=== PATIENT | female | born 1945 | race Caucasian/White ===

== ENCOUNTER 2017-01-13 09:28 | Day surgery (SDC) | payer OTHER ==
--- NOTE | ~2017-01-13 | EGD ---
EGD REPORT [facility] [address] [place]. [address] NAME: MERCY CARDENAS : [birth year] STATUS : REG [facility] PAT#: [id number] AGE: 71 ADM/REG DATE : 01/13/17 MR#: [id number] REPORT SERV DATE: 01/13/17 DICTATED BY: CHAD DE LA O DATE: 01/14/17 REPORT STATUS : Draft [facility]ANS[facility]IBED BY: [facility] DATE: 01/14/17 [facility] Patient Name: Mercy Cardenas Date of : 1945 Attending MD: JOHN DE LA O MD Procedure Date No Time: 01/13/2017 Procedure: Colonoscopy Indications: High risk colon cancer surveillance: Personal history of colonic polyps, Last colonoscopy: October 2011 Referring MD: JUSTINO COBOS Medicines: See the Anesthesia note for documentation of the administered medications Complications: No immediate complications. Estimated blood loss: None. Procedure: Pre-Anesthesia Assessment: - ASA Grade Assessment: III - A patient with severe systemic disease. - Prior to the procedure, a History and Physical was performed, and patient medications and allergies were reviewed. The patient's tolerance of previous anesthesia was also reviewed. The risks and benefits of the procedure and the sedation options and risks were discussed with the patient. All questions were answered, and informed consent was obtained. Prior Anticoagulants: The patient has taken no previous anticoagulant or antiplatelet agents. After reviewing the risks and benefits, the patient was deemed in satisfactory condition to undergo the procedure. After I obtained informed consent, the scope was passed under direct vision. Throughout the procedure, the patient's blood pressure, pulse, and oxygen saturations were monitored continuously. The PCF [id number] was introduced through the anus and advanced to the terminal ileum. The ileocecal valve, appendiceal orifice, terminal ileum and rectum were photographed. The entire colon was examined. The colonoscopy was performed without difficulty. The patient tolerated the procedure well. The quality of the bowel preparation was adequate. Findings: The perianal and digital rectal examinations were normal. The terminal ileum appeared normal. Multiple small and large-mouthed diverticula were found in the entire colon. Normal mucosa was found in the entire colon. Biopsies were taken with a cold forceps for histology. EGD REPORT [place] [id number] [place]. [address] NAME: MERCY CARDENAS : [birth year] STATUS : REG [facility]#: [id number] AGE: 71 ADM/REG DATE : 01/13/17 MR#: [id number] REPORT SERV DATE: 01/13/17 DICTATED BY: CHAD DE LA O DATE: 01/14/17 REPORT STATUS : Draft TRANSCRIBED BY: [employer] DATE: 01/14/17 Non-bleeding internal hemorrhoids were found during retroflexion and were Grade I (internal hemorrhoids that do not prolapse). No other significant abnormalities were identified in a careful examination of the remainder of the colon. Impression: - The examined portion of the ileum was normal. - Diverticulosis in the entire examined colon. - Normal mucosa in the entire examined colon. Biopsied. - Non-bleeding internal hemorrhoids. Recommendation: - Patient has a contact number available for emergencies. The signs and symptoms of potential delayed complications were discussed with the patient. Return to normal activities tomorrow. Written discharge instructions were provided to the patient. - High fiber diet indefinitely. - Discharge patient to home. - Continue present medications. - Await pathology results. - Repeat colonoscopy in 5 years for surveillance. Procedure Code(s): --- Professional --- 32431, Colonoscopy, flexible, proximal to splenic flexure; with biopsy, single or multiple Diagnosis Code(s): --- Professional --- K64.0, First degree hemorrhoids K57.30, Diverticulosis of large intestine without perforation or abscess without bleeding Z86.010, Personal history of colonic polyps CPT copyright 2013 [employer]. All rights reserved. The codes documented in this report are preliminary and upon systems analysis manager review may be revised to meet current compliance requirements. JOHN DE LA O MD 01/13/2017 11:03 AM This report has been signed electronically. Number of Addenda: 0 Note Initiated On: 01/13/2017 10:36 AM Scope Withdrawal Time 0 hours 9 minutes 6 seconds
[~2017-01-13 09:28] MED LIST: ALLEGRA180 PO; AMARYL4 PO; CALTRA600D PO; COREG12 PO; COZAAR100 MG PO; CRESTOR40 MG PO; FISH OIL1200 MG PO; FLONASE NAS; GLUCPH PO; HARD NAILS PO; HUMALOG SC; JANUVIA100 MG PO; KLOR-CON 1010 MEQ PO; LIPITOR10 PO; MAGOX4 PO; MAXZIDE PO; PREV30 PO; PROTONIX PO; REG5 PO; STARLIX120 PO; TRESIBA FL100 UNIT/1 SC; VICTOZA18 MG/3 ML SC; VITAMIN D31000 UNIT PO; VITE PO
== END 2017-01-13 23:59 | disposition home or self-care (01) ==
LOC: DMU 09:28
PROVIDERS: Internal Medicine Gastroenterology
PROC: 0DBE8ZZ Excision of Large Intestine, Via Natural or Artificial Opening Endoscopic (ICD-10-PCS; principal; 2017-01-13 11:00)
DX: Z12.11 Encounter for screening for malignant neoplasm of colon (principal); K57.30 Diverticulosis of large intestine without perforation or abscess without bleeding; K64.8 Other hemorrhoids; Z86.010 Personal history of colon polyps; I12.9 Hypertensive chronic kidney disease with stage 1 through stage 4 chronic kidney disease, or unspecified chronic kidney disease; E11.22 Type 2 diabetes mellitus with diabetic chronic kidney disease; N18.9 Chronic kidney disease, unspecified; K21.9 Gastro-esophageal reflux disease without esophagitis; K58.9 Irritable bowel syndrome, unspecified; E78.00 Pure hypercholesterolemia, unspecified; G47.33 Obstructive sleep apnea (adult) (pediatric); Z79.51 Long term (current) use of inhaled steroids; Z79.4 Long term (current) use of insulin; Z79.899 Other long term (current) drug therapy; Z98.890 Other specified postprocedural states
CPT/HCPCS: 82962; 88305